=== PATIENT | male | born 1955 | race Caucasian/White ===

== ENCOUNTER 2017-12-13 17:38 | Observation (INO) | payer MEDICARE ==
[~2017-12-13 17:38] MED LIST: ISOVUE-370 76%-LOCM 1 ML ONE
[2017-12-13 18:17] LABS: #Eosinphils 0.5 thou/uL (0.0-0.7); #Monocytes 0.9 thou/uL (0.11-0.59); #Neutrophils 7.8 thou/uL (1.40-6.50); %Basophils 0.3 % (0.0-1.0); %Lymphocytes 24.2 % (21.0-51.0); %Monocytes 7.7 % (0.0-10.0); %Neutrophils 63.8 % (42.0-75.0); Hemoglobin 13.5 g/dL (14.0-18.0); Mean Corpuscular HGB CONC 32.8 g/dL (32.0-36.0); Mean Corpuscular Hemoglobin 29.5 pg (27.0-31.0); Mean Corpuscular Volume 89.9 fL (78.0-98.0); Mean Platelet Volume 9.4 fL (7.4-10.4); Platelet Count 180 thou/uL (130-400); RBC Distribution Width 13.7 % (11.5-14.5); Red Blood Cell (RBC) Count 4.57 mill/uL (4.70-6.10); White Blood Cell (WBC) Count 12.2 thou/uL (4.8-10.8)
[2017-12-13 18:27] LABS: ALT (SGPT) 9 U/L (8-55); AST (SGOT) 12 U/L (5-34); Albumin 4.4 g/dL (3.4-4.8); Alkaline Phosphatase 63 U/L (40-150); Anion Gap 15 mmol/L (10-20); BUN (Urea Nitrogen) 24 mg/dL (8.4-25.7); Bilirubin, Total 0.7 mg/dL (0.2-1.2); Calc. Creatinine Clearance 0 mL/min (70-130); Calcium 9.5 mg/dL (7.8-10.44); Carbon Dioxide 23 mmol/L (23-31); Chloride 106 mmol/L (98-107); Estimated GFR-MDRD 59; Globulin 3.1 g/dL (2.4-3.5); Glucose 115 mg/dL (80-115); Lipase 57 U/L (8-78); Potassium 3.6 mmol/L (3.5-5.1); Protein, Total 7.5 g/dL (5.8-8.1); Sodium 140 mmol/L (136-145)
--- NOTE | 2017-12-13 19:23 | CT ---
CT ABDOMEN AND PELVIS WITH IV CONTRAST 12/13/17 HISTORY: Abdominal pain. COMPARISON: 11/07/11. FINDINGS: Chronic interstitial scarring and large cystic lesion at the left lung base are stable. Gallbladder i s surgically absent. Cyst of the right kidney is noted. Urinary bladder is incompletely distended. Po stoperative changes of the right groin. Lack of oral contrast limits of evaluation of the bowel. Scattered diverticula. Circumferential wall thickening and adjacent fat stranding of the upper sigmoid colon. No free air or free fluid. IMPRESSION: Noncomplicated sigmoid diverticulitis. POS: NATALI
[2017-12-13] MEDS ORDERED: Morphine 2 MG/ML SYRINGE ONE (19:32)
--- NOTE | 2017-12-13 19:51 | PDOC.FPRHP ---
- History of Present Illness Chief Complaint: abdominal pain History of Present Illness: 62yo M with pmh of CHF s/p heart transplant in 2000 on immunosupresive meds presenting for abdominal pain. Onset 2 days ago, localized in LLQ with no radiation. constant dull pain worsening over time, rated 8-9/10. No related symptoms. No N/V, no diarrhea/constipation, no melena, no hematochezia, no fevers/chills. ED Course: Flagyl 500mg, Levaquin 750mg, morphine 4mg. Abd CT- sigmoid diverticulitis, uncomplicated - Allergies/Adverse Reactions Allergies Allergy/AdvReac Type Severity Reaction Status Date / Time No Known Drug Allergies Allergy Verified 12/13/17 21:04 - Home Medications Medication Instructions Recorded Confirmed Type Allopurinol 100 mg PO DAILY 09/15/12 12/13/17 History Amlodipine Besylate [amLODIPine 2.5 mg PO DAILY 09/15/12 12/13/17 History Besylate] Aspirin [Aspir 81] 81 mg PO DAILY 09/15/12 12/13/17 History Atenolol 100 mg PO BID 09/15/12 12/13/17 History Mycophenolate Mofetil 1,500 mg PO BID 09/15/12 12/13/17 History Ramipril 10 mg PO BID 09/15/12 12/13/17 History Simvastatin [Zocor] 20 mg PO HS 09/15/12 12/13/17 History cycloSPORINE, Modified [Neoral] 75 mg PO BID 09/15/12 12/13/17 History predniSONE [predniSONE 5 mg 5 mg PO DAILY 09/15/12 12/13/17 History Dosepak] Calcium Carbonate [Calcium] 600 mg PO TID 05/27/16 12/13/17 History Magnesium 250 mg PO DAILY 05/27/16 12/13/17 History Zinc Gluconate [Zinc] 15 mg PO BID 12/13/17 12/13/17 History - History PMHx: CHF (before transplant), stroke, HTN PSHx: Heart transplant 2000, cholecystectomy FHx: CAD and HTN- mother, father, siblings. lung cancer- father. stroke- mother Social: former smoker (1998 last use, 45 pack years), EtOH- denies, former social, drugs- denies - Review of Systems General: denies: fever/chills, fatigue Eyes: denies: eye pain, vision changes ENT: denies: nasal congestion, rhinorrhea Respiratory: denies: cough, congestion, shortness of breath Cardiovascular: denies: chest pain, palpitation Gastrointestinal: reports: abdominal pain. denies: nausea, vomiting, diarrhea, constipation, GI bleeding Genitourinary: denies: dysuria, discharge Skin: denies: rashes, lesions Musculoskeletal: denies: pain, tenderness Neurological: denies: syncope, seizure Psychological: denies: anxiety, depression - Vital signs BP: [159/104] HR: [78] RR: [16] Tmax: [97.9] Pox: [97]% on [ra] Wt: [95kg] - Physical Exam Constitutional: NAD, awake, alert and oriented HEENT: normocephalic and atraumatic, EOMI, conjunctiva clear, grossly normal vision, grossly normal hearing Neck: supple, trachea midline Chest: no-tender to palpation Heart: RRR, normal S1/S2, pulses present Lungs: CTAB, no respiratory distress, good air movement Abdomen: soft, bowel sounds present, other (mild tenderness to palpation of LLQ , no guarding, no rebound tenderness) Musculoskeletal: normal structure, normal tone Skin: no rash/lesions, good turgor Heme/Lymphatic: no purpura, no petechia Psychiatric: normal mood and affect, good judgment and insight FMR H&P: Results - Labs Result Diagrams: 12/13/17 17:46 12/13/17 17:46 Lab results: WBC 12.2 thou/uL (4.8-10.8) H 12/13/17 17:46 Hgb 13.5 g/dL (14.0-18.0) L 12/13/17 17:46 Hct 41.1 % (42.0-52.0) L 12/13/17 17:46 MCV 89.9 fL (78.0-98.0) 12/13/17 17:46 Plt Count 180 thou/uL (130-400) 12/13/17 17:46 Neutrophils % 63.8 % (42.0-75.0) 12/13/17 17:46 Sodium 140 mmol/L (136-145) 12/13/17 17:46 Potassium 3.6 mmol/L (3.5-5.1) 12/13/17 17:46 Chloride 106 mmol/L (98-107) 12/13/17 17:46 Carbon Dioxide 23 mmol/L (23-31) 12/13/17 17:46 BUN 24 mg/dL (8.4-25.7) 12/13/17 17:46 Creatinine 1.24 mg/dL (0.6-1.3) 12/13/17 17:46 Glucose 115 mg/dL (80-115) 12/13/17 17:46 Lactic Acid 1.1 mmol/L (0.5-2.2) 12/13/17 17:46 Calcium 9.5 mg/dL (7.8-10.44) 12/13/17 17:46 Total Bilirubin 0.7 mg/dL (0.2-1.2) 12/13/17 17:46 AST 12 U/L (5-34) 12/13/17 17:46 ALT 9 U/L (8-55) 12/13/17 17:46 Alkaline Phosphatase 63 U/L (40-150) 12/13/17 17:46 Serum Total Protein 7.5 g/dL (5.8-8.1) 12/13/17 17:46 Albumin 4.4 g/dL (3.4-4.8) 12/13/17 17:46 Lipase 57 U/L (8-78) 12/13/17 17:46 FMR H&P: A/P - Plan Uncomplicated acute sigmoid diverticulitis in the setting of immunosuppression A- LLQ pain and CT findings consistent with sigmoid diverticulitis. afebrile, WBC 12.2. Pt is immunosuppressed from heart transplant, s/p one dose of levaquin and flagyl P- continue flagyl -start rocephin tomorrow AM -LR 100ml/hr -clear liquid diet, advance as tolerated tomorrow CKD3a A-eGFR stable, BUN and Cr wnl P-IVF as stated above Hx of heart transplant -md aware, home meds HTN -home meds HLD -home meds FULL code PPx: Lovenox for VTE, no GI indicated FMR H&P: Upper Level - Pertinent history 62 yo CM with a PMH of CAD s/p heart transplant in 2000, HTN, HLD presenting with LLQ abdominal pain over the last 2 days. Pt has never experienced before. No obvious aggravating/alleviating factors. Pt still able to tolerate PO intake and notes no change in BMs. Pt denies fevers/chills, CP, SOB, NVD, blood in stools. Pt is compliant with medications including multiple anti-rejection meds. - Pertinent findings Vitals: BP 133/87, HR 73, RR 18, O2 97% on RA, tmax 98.6, wt 88kg Gen: obese in NAD CV: RRR, no MMR Resp: normal effort, CTAB Abd: obese, BS+, nondistended, moderately TTP LLQ, no guarding/rebound/fluid wave Skin: 1 cm SK on midback thoracic area, small area of erythema below - Plan Date/Time: 12/13/171950 I, Alexey Flynn MD, have evaluated this patient and agree with findings/plan as outlined by sports intern resident. Pertinent changes/additions are listed here. 1. Uncomplicated acute sigmoid diverticulitis in the setting of immunosuppression -Pt presents with acute LLQ pain and CT findings consistent with sigmoid diverticulitis. Pt is afebrile but has mild leukocytosis. Pt overall well appearing, but with history of immunosuppression, warrants inpatient medical therapy. -Will admit pt to medical floor with clear liquid diet, IV abx including Ceftriaxone and Metronidazole, and LR for mIVF. -Pain control with IV morphine PRN. -Blood culture obtained. 2. Hx of heart transplant -Continue home medication regimen 3. CKD3a -eGFR stable from previous values -IVF and continue to monitor 4. HTN -Continue home meds 5. HLD -Continue home meds FULL code PPx: Lovenox for VTE, no GI indicated disposition: Admit to medical floor for anticipated length of stay less than 2 midnights, pending clinical course. Attending Addendum - Attending Addendum Date/Time: 12/13/172103 I personally evaluated the patient and discussed the management with Dr. Patel /Gee. I agree with the History, Examination, Assessment and Plan documented above with any addition or exceptions noted below. Patient with history of cardiac transplant in 2000 presents with 2 day history of sudden onset of LLQ pain that is dull in nature. Not improved or worsened by anything. Denies fevers, chills, chest pain, shortness of breath, nausea, vomiting, diarrhea, change in bowel habits. Denies intolerance of food. On exam , has moderate TTP over the LLQ, no peritoneal signs. Mild elevation of WBC but no major left shift and no other major metabolic derangements. CT scan shows sigmoid diverticulitis and appears to show fairly significant diverticular burden on my review of the images. Patient will be admitted for Sigmoid diverticulitis in the setting of immunosuppression. Obtain cultures, continue abx therapy with Rocephin and Flagyl. Give mild bowel rest and PO fluid hydrate as tolerated. Symptomatically control as needed. Other chronic conditions stable at this time and will continue home meds. Monitor for signs of worsening due to his immunosuppression. At this time do not suspect any more serious etiology such as viral colitis in the setting of immunosuppression.
[2017-12-13 20:00] LABS: Bilirubin Negative (Negative); Blood, Urine Small (Negative); Clarity CLEAR (Clear); Glucose, Urine (Dipstick) Negative (Negative); Leukocyte Negative (Negative); Nitrite Negative (Negative); Protein, Urine (Dipstick) Negative (Neg-Trace); Specific Gravity, Urine 1.021 (1.002-1.036)
[2017-12-13 20:02] LABS: Bacteria/HPF None Seen HPF (None Seen); Hyaline Casts/LPF 0-3 HYALINE CAST LPF (0-3 Hyaline); RBC/HPF 0-3 HPF (0-3); Squamous Epithelial None Seen HPF (0-3); WBC/HPF None Seen HPF (0-3)
[2017-12-13] MEDS ORDERED: Acetaminophen 325 MG TAB PO PRN ×2 (21:06)
[2017-12-13] MEDS ORDERED: Ondansetron ODT 4 MG TAB SL PRN (21:06)
[2017-12-13] MEDS ORDERED: HYDROcodone/Acetaminophen 5/325 mg Tablet PO PRN ×2 (21:06)
[2017-12-13] MEDS ORDERED: Ondansetron PF 4 MG/2 ML Vial IVP PRN (21:06)
[2017-12-13] MEDS ORDERED: cycloSPORINE, Modified 25 MG CAP PO SCH (21:15)
[2017-12-13] MEDS ORDERED: Calcium Carbonate 600 MG TAB PO SCH (21:15)
[2017-12-13] MEDS ORDERED: metroNIDAZOLE 500 MG in Premix Bag 1 BAG IVPB ONE (21:21)
[2017-12-13] MEDS ORDERED: Mycophenolate 250 MG CAP PO SCH (21:30)
[2017-12-13] MEDS ORDERED: Atorvastatin Calcium 10 MG TAB PO SCH (21:30)
[2017-12-13] MEDS ORDERED: Ramipril 5 MG CAP PO SCH (21:30)
[2017-12-13] MEDS: Lactated Ringer's 1,000 ML IV SCH (23:04)
[2017-12-14] MEDS ORDERED: cefTRIAXone\\ROCEPHIN 2 GM VIAL IM SCH (04:00)
[2017-12-14] MEDS ORDERED: metroNIDAZOLE 500 MG TAB PO SCH ×2 (04:00→06:00)
[2017-12-14] MEDS: Atenolol 50 MG TAB PO SCH ×2 (04:23→08:15)
[2017-12-14] MEDS ORDERED: cefTRIAXone\\ROCEPHIN 2 GM in Sodium Chloride 0.9% 100 ML IVPB SCH (06:00)
[2017-12-14] MEDS ORDERED: cefTRIAXone\\ROCEPHIN 2 GM VIAL IVPB SCH (06:00)
[2017-12-14] MEDS ORDERED: metroNIDAZOLE 500 MG in Premix Bag 1 BAG IVPB SCH (06:00)
--- NOTE | 2017-12-14 06:29 | PDOC.FM ---
- Subjective Subjective: Mr Romero is feeling well this morning. Report feeling hungry. Has LLQ pain only with movement. Has not yet had a BM. Denies SOB. - Objective MAR Reviewed: Yes Vital Signs & Weight: Vital Signs (12 hours) Temp Pulse Resp BP BP Pulse Ox 12/14/17 05:12 66 18 126/76 96 12/14/17 04:23 71 12/13/17 23:00 97.9 F 71 18 115/68 91 L 12/13/17 21:02 97.9 F 74 18 150/77 H 95 Weight Weight 95.073 kg I&O: 12/12/17 12/13/17 12/14/17 06:59 06:59 06:59 Intake Total 200 Balance 200 Result Diagrams: 12/14/17 06:21 12/13/17 17:46 Radiology Reviewed by me: Yes (sigmoid diverticulosis) <Wendy Chisholm - Last Filed: 12/14/17 09:53> - Objective Vital Signs & Weight: Vital Signs (12 hours) Temp Pulse Resp BP BP Pulse Ox 12/14/17 08:15 61 117/77 12/14/17 08:13 117/77 12/14/17 07:34 98.3 F 61 20 117/77 98 12/14/17 05:12 66 18 126/76 96 12/14/17 04:23 71 12/13/17 23:00 97.9 F 71 18 115/68 91 L Weight Weight 95.073 kg I&O: 12/13/17 12/14/17 12/15/17 06:59 06:59 06:59 Intake Total 200 Balance 200 Result Diagrams: 12/14/17 06:21 12/13/17 17:46 <Georges Villavicencio - Last Filed: 12/14/17 10:07> Phys Exam - Physical Examination Constitutional: NAD Neck: supple Respiratory: no wheezing, clear to auscultation bilateral Cardiovascular: RRR, no significant murmur Gastrointestinal: soft, positive bowel sounds tender in LLQ Musculoskeletal: pulses present Neurological: moves all 4 limbs Psychiatric: normal affect, A&O x 3 Skin: cap refill <2 seconds <Wendy Chisholm - Last Filed: 12/14/17 09:53> Dx/Plan (1) Diverticulosis Code(s): K57.90 - DVRTCLOS OF INTEST, PART UNSP, W/O PERF OR ABSCESS W/O BLEED Status: Acute (2) CKD (chronic kidney disease) stage 3, GFR 30-59 ml/min Code(s): N18.3 - CHRONIC KIDNEY DISEASE, STAGE 3 (MODERATE) Status: Chronic (3) HLD (hyperlipidemia) Code(s): E78.5 - HYPERLIPIDEMIA, UNSPECIFIED Status: Chronic (4) HTN (hypertension) Code(s): I10 - ESSENTIAL (PRIMARY) HYPERTENSION Status: Chronic (5) Hx of heart transplant Code(s): Z94.1 - HEART TRANSPLANT STATUS Status: Chronic - Plan Plan: Uncomplicated acute sigmoid diverticulitis in the setting of immunosuppression - Pt immunosupressed with mild leukocytosis - CT 12/13: sigmoid diverticulitis - Blood cx pending - Transition from IV Ceftriaxone & Flagyl to PO Augmentin & Flagyl - Continue LR @ 100 - Transition from IV Morphine PRN for pain control to Tylenol, ibuprofen - Will escalate diet to HH CKD3a - GFR stable Hx of heart transplant - Continue home meds HTN - Continue home meds HLD - Continue home meds Code Status: FULL DVT ppx: Lovenox Dispo: likely today if tolerating PO diet <Wendy Chisholm - Last Filed: 12/14/17 09:53> Attending Addendum - Attending Addendum Date/Time: 12/14/17 1006 I personally evaluated the patient and discussed the management with Dr. Chisholm. I agree with the History, Examination, Assessment and Plan documented above with any addition or exceptions noted below. Patient feels well this morning, and LLQ pain is improved, only bothers him with movement. Will advance diet and change to PO abx as he has no systemic signs of infection and pain is not worsened with PO intake. No changes in BMs. Will need good return precautions but if feeling well this afternoon and tolerating PO well can likely d/c home on oral therapy. <Georges Villavicencio - Last Filed: 12/14/17 10:07>
[2017-12-14 06:37] LABS: #Eosinphils 0.5 thou/uL (0.0-0.7); #Lymphocytes 2.4 thou/uL (1.20-3.40); #Monocytes 0.7 thou/uL (0.11-0.59); %Eosinophils 5.6 % (0.0-10.0); %Lymphocytes 27.5 % (21.0-51.0); %Monocytes 8.6 % (0.0-10.0); %Neutrophils 58.3 % (42.0-75.0); Hemoglobin 11.5 g/dL (14.0-18.0); Mean Corpuscular Hemoglobin 28.9 pg (27.0-31.0); Mean Corpuscular Volume 90.3 fL (78.0-98.0); Mean Platelet Volume 9.2 fL (7.4-10.4); Platelet Count 164 thou/uL (130-400); RBC Distribution Width 13.8 % (11.5-14.5); Red Blood Cell (RBC) Count 3.99 mill/uL (4.70-6.10); White Blood Cell (WBC) Count 8.6 thou/uL (4.8-10.8)
[2017-12-14 07:45] VITALS: TEMP 98.3
[2017-12-14] MEDS ORDERED: predniSONE 5 MG TAB PO SCH (08:00)
[2017-12-14] MEDS: Lactated Ringer's 1,000 ML IV SCH (08:22)
[2017-12-14] MEDS ORDERED: Mycophenolate 250 MG CAP PO SCH (09:00)
[2017-12-14] MEDS ORDERED: Magnesium Oxide 250 MG TAB PO SCH (09:00)
[2017-12-14] MEDS ORDERED: Amlodipine 5 MG TAB PO SCH (09:00)
[2017-12-14] MEDS ORDERED: cycloSPORINE, Modified 25 MG CAP PO SCH (09:00)
[2017-12-14] MEDS ORDERED: Aspirin 81 mg Enteric Coated Tablet PO SCH (09:00)
[2017-12-14] MEDS ORDERED: Ramipril 5 MG CAP PO SCH (09:00)
[2017-12-14] MEDS ORDERED: Allopurinol 100 MG TAB PO SCH (09:00)
[2017-12-14] MEDS ORDERED: ZINC GLUCONATE PO SCH (09:00)
[2017-12-14] MEDS ORDERED: Enoxaparin Sodium 40 MG/0.4 ML SYRINGE SC SCH (09:00)
[2017-12-14] MEDS ORDERED: Calcium Carbonate 600 MG TAB PO SCH (09:00)
[2017-12-14 11:52] VITALS: BP 121/75
[2017-12-14] MEDS ORDERED: Atorvastatin Calcium 10 MG TAB PO SCH (21:00)
--- NOTE | 2017-12-15 04:14 | DIS-2 ---
DATE OF ADMISSION: 12/13/2017 DATE OF DISCHARGE: 12/14/2017 RESIDENT: Wendy Chisholm MD, PGY1. ADMITTING ATTENDING: Georges Villavicencio MD DISCHARGE ATTENDING: Georges Villavicencio MD CONSULTATIONS: None. PROCEDURES: CT scan of abdomen and pelvis showing noncomplicated sigmoid diverticulitis. PRIMARY DIAGNOSES: 1. Acute sigmoid diverticulitis. 2. Immunosuppression. SECONDARY DIAGNOSES: 1. Chronic kidney disease 3A. 2. History of heart transplant. 3. Hypertension. 4. Hyperlipidemia. DISCHARGE MEDICATIONS: 1. Aspirin 81 mg daily. 2. Mycophenolate 1500 mg b.i.d. 3. Allopurinol 100 mg daily. 4. Atenolol 100 mg b.i.d. 5. Ramipril 10 mg b.i.d. 6. Amlodipine 2.5 mg daily. 7. Simvastatin 20 mg at bedtime. 8. Prednisone 5 mg daily. 9. Calcium carbonate 600 mg t.i.d. 10. Magnesium 250 mg daily. 11. Zinc gluconate 50 mg b.i.d. 12. Augmentin 875/125 q.i.d. for 10 days (new). 13. Flagyl 500 mg q.i.d. for 10 days (new). 14. Cyclosporine 75 mg b.i.d. DISCONTINUED MEDICATIONS: None. HISTORY OF PRESENT ILLNESS AND HOSPITAL COURSE: Mr. Romero is a 62-year-old male who presented with left lower quadrant pain, found to have uncomplicated acute sigmoid diverticulitis. In the setting of immunosuppression for history of heart transplant and leukocytosis. The patient was admitted and started on IV ceftriaxone and Flagyl. He was started on LR at 100 and blood cultures are still pendi ng. His pain was controlled with Tylenol and he was transitioned to p.o. Augmentin and Flagyl prior to discharge. He was tolerating oral diet at time of discharge. Chronic conditions of CKD, hypertension, and hyperlipidemia were stable with the patient's home medic ations. The patient was continued on their immunosuppressive medications for history of heart transp lant. DISPOSITION: Stable. DISCHARGE INSTRUCTIONS: 1. Location: Home. 2. Diet: Heart healthy. 3. Activity: No restrictions. 4. Follow up with PCP in 2-[address] Waite in 2 weeks[facility].
== END 2017-12-14 13:31 | disposition home or self-care (01) ==
LOC: ERS 17:38 → 2SW 19:49
PROVIDERS: ADMIT Student in an Organized Health Care Education/Training Program; ATTEND Student in an Organized Health Care Education/Training Program
DX: K57.32 Diverticulitis of large intestine without perforation or abscess without bleeding (principal); I12.9 Hypertensive chronic kidney disease with stage 1 through stage 4 chronic kidney disease, or unspecified chronic kidney disease; N18.3 Chronic kidney disease, stage 3 (moderate); E78.5 Hyperlipidemia, unspecified; Z79.82 Long term (current) use of aspirin; Z79.899 Other long term (current) drug therapy; Z94.1 Heart transplant status
CPT/HCPCS: 74177; 80053; 83605; 83690; 85025 ×2; 87040; 96361 ×3; 96365; 96366 ×2; 96367; 96372; 96375; 97139; 99285; G0378 ×2; 36415; 81003; 81015; J0696; J1650; J1956; J2270; J7050; J7515; J7517

== ENCOUNTER 2018-05-12 22:51 | Inpatient (IN) | payer MEDICARE ==
[2018-05-12 23:28] LABS: #Basophils 0.1 thou/uL (0.0-0.2); #Eosinphils 0.4 thou/uL (0.0-0.7); #Lymphocytes 2.8 thou/uL (1.20-3.40); #Monocytes 1.4 thou/uL (0.11-0.59); #Neutrophils 11.9 thou/uL (1.40-6.50); %Basophils 0.4 % (0.0-1.0); %Eosinophils 2.3 % (0.0-10.0); %Lymphocytes 17.2 % (21.0-51.0); %Monocytes 8.5 % (0.0-10.0); %Neutrophils 71.6 % (42.0-75.0); Hemoglobin 12.7 g/dL (14.0-18.0); Mean Corpuscular HGB CONC 32.8 g/dL (32.0-36.0); Mean Corpuscular Hemoglobin 29.6 pg (27.0-31.0); Mean Corpuscular Volume 90.2 fL (78.0-98.0); Mean Platelet Volume 8.6 fL (7.4-10.4); Platelet Count 174 thou/uL (130-400); RBC Distribution Width 13.7 % (11.5-14.5); Red Blood Cell (RBC) Count 4.29 mill/uL (4.70-6.10); White Blood Cell (WBC) Count 16.6 thou/uL (4.8-10.8)
[2018-05-12 23:51] LABS: ALT (SGPT) 13 U/L (8-55); AST (SGOT) 12 U/L (5-34); Albumin 4.2 g/dL (3.4-4.8); Alkaline Phosphatase 72 U/L (40-150); Anion Gap 13 mmol/L (10-20); BUN (Urea Nitrogen) 22 mg/dL (8.4-25.7); Bilirubin, Total 0.9 mg/dL (0.2-1.2); Calc. Creatinine Clearance 0 mL/min (70-130); Carbon Dioxide 31 mmol/L (23-31); Chloride 102 mmol/L (98-107); Estimated GFR-MDRD 61; Globulin 2.6 g/dL (2.4-3.5); Glucose 112 mg/dL (80-115); Lipase 42 U/L (8-78); Potassium 3.8 mmol/L (3.5-5.1); Protein, Total 6.8 g/dL (5.8-8.1); Sodium 142 mmol/L (136-145)
[2018-05-13 01:15] LABS: Bilirubin Negative (Negative); Blood, Urine Trace (Negative); Clarity CLEAR (Clear); Glucose, Urine (Dipstick) Negative (Negative); Leukocyte Negative (Negative); Nitrite Negative (Negative); Protein, Urine (Dipstick) Negative (Neg-Trace); Urobilinogen 0.2 mg/dL (0.2-1.0); pH, Urine 5.5 (5.0-9.0)
[2018-05-13 01:17] LABS: Bacteria/HPF None Seen HPF (None Seen); Hyaline Casts/LPF 0-3 HYALINE CAST LPF (0-3 Hyaline); Pathc Cast-AUWi Flag 0.13 (0-2.49); RBC/HPF 0-3 HPF (0-3); Squamous Epithelial None Seen HPF (0-3); WBC/HPF 0-3 HPF (0-3)
--- NOTE | 2018-05-13 01:36 | PDOC.FPRHP ---
- History of Present Illness Chief Complaint: RLQ abdominal pain History of Present Illness: 62yo M with pmh of CHF s/p heart transplant in 2000 on immunosupresive meds presenting for abdominal pain. Onset 4 days ago, localized in LLQ with no radiation. constant dull pain worsening over time, moderate in severity. Nausea , no vomiting, no diarrhea/constipation, no melena, no hematochezia, no fevers/ chills. ED Course: Flagyl 500mg, cipro 400mg, Abd CT- sigmoid diverticulitis - Allergies/Adverse Reactions Allergies Allergy/AdvReac Type Severity Reaction Status Date / Time No Known Drug Allergies Allergy Verified 05/13/18 04:19 - Home Medications Medication Instructions Recorded Confirmed Type Allopurinol 100 mg PO DAILY 09/15/12 05/13/18 History Amlodipine Besylate [amLODIPine 2.5 mg PO DAILY 09/15/12 05/13/18 History Besylate] Aspirin [Aspir 81] 81 mg PO DAILY 09/15/12 05/13/18 History Atenolol 100 mg PO BID 09/15/12 05/13/18 History Mycophenolate Mofetil 1,500 mg PO BID 09/15/12 05/13/18 History Ramipril 10 mg PO BID 09/15/12 05/13/18 History Simvastatin [Zocor] 20 mg PO HS 09/15/12 05/13/18 History cycloSPORINE, Modified [Neoral] 75 mg PO BID 09/15/12 05/13/18 History predniSONE [predniSONE 5 mg 5 mg PO DAILY 09/15/12 05/13/18 History Dosepak] Magnesium 250 mg PO DAILY 05/27/16 05/13/18 History Zinc Gluconate [Zinc] 15 mg PO BID 12/13/17 05/13/18 History - History PMHx: CHF (before transplant), stroke, HTN, Gout, basal cell carcinoma s/p biopsy in R ear PSHx: Heart transplant 2000, cholecystectomy FHx: CAD and HTN- mother, father, siblings. lung cancer- father. stroke- mother Social: former smoker (1998 last use, 45 pack years), EtOH- denies, former social, drugs- denies - Review of Systems General: denies: fever/chills, fatigue Eyes: denies: eye pain, vision changes ENT: denies: nasal congestion, rhinorrhea Respiratory: denies: congestion, shortness of breath Cardiovascular: denies: chest pain, palpitation Gastrointestinal: reports: nausea. denies: vomiting Genitourinary: denies: incontinence, dysuria Skin: denies: rashes, lesions Musculoskeletal: denies: pain, tenderness Neurological: denies: numbness, syncope Psychological: denies: anxiety, depression - Vital signs BP: [134/74] HR: [77] RR: [18] Tmax: [97.9] Pox: [94]% on [ra] Wt: [94kg] - Physical Exam Constitutional: NAD, awake, alert and oriented HEENT: normocephalic and atraumatic, EOMI, grossly normal vision, grossly normal hearing Neck: supple, FROM Chest: no-tender to palpation Heart: RRR, normal S1/S2 Lungs: CTAB, no respiratory distress Abdomen: soft, bowel sounds present, other (mild-moderate TTP LLQ) Musculoskeletal: normal structure, normal tone Neurological: no focal deficit, normal sensation Skin: no rash/lesions, good turgor Heme/Lymphatic: no unusual bruising or bleeding, no purpura Psychiatric: normal mood and affect, good judgment and insight FMR H&P: Results - Labs Result Diagrams: 05/12/18 23:19 05/12/18 23:19 Lab results: WBC 16.6 thou/uL (4.8-10.8) H 05/12/18 23:19 Hgb 12.7 g/dL (14.0-18.0) L 05/12/18 23:19 Hct 38.7 % (42.0-52.0) L 05/12/18 23:19 MCV 90.2 fL (78.0-98.0) 05/12/18 23:19 Plt Count 174 thou/uL (130-400) 05/12/18 23: Neutrophils % 71.6 % (42.0-75.0) 05/12/18 23:19 Sodium 142 mmol/L (136-145) 05/12/18 23:19 Potassium 3.8 mmol/L (3.5-5.1) 05/12/18 23:19 Chloride 102 mmol/L (98-107) 05/12/18 23:19 Carbon Dioxide 31 mmol/L (23-31) 05/12/18 23:19 BUN 22 mg/dL (8.4-25.7) 05/12/18 23:19 Creatinine 1.20 mg/dL (0.7-1.3) 05/12/18 23: Glucose 112 mg/dL (80-115) 05/12/18 23:19 Calcium 11.0 mg/dL (7.8-10.44) H 05/12/18 23:19 Total Bilirubin 0.9 mg/dL (0.2-1.2) 05/12/18 23: AST 12 U/L (5-34) 05/12/18 23: ALT 13 U/L (8-55) 05/12/18 23: Alkaline Phosphatase 72 U/L (40-150) 05/12/18 23: Serum Total Protein 6.8 g/dL (5.8-8.1) 05/12/18 23: Albumin 4.2 g/dL (3.4-4.8) 05/12/18: Lipase 42 U/L (8-78) 05/12/18 23:19 Urine Ketones Negative mg/dL (Negative) 05/13/18 01:00 Urine Blood Trace (Negative) H 05/13/18 01:00 Urine Nitrite Negative (Negative) 05/13/18 01:00 Ur Leukocyte Esterase Negative (Negative) 05/13/18 01:00 Urine RBC 0-3 HPF (0-3) 05/13/18 01:00 Urine WBC 0-3 HPF (0-3) 05/13/18 01:00 Ur Squamous Epith Cells None Seen HPF (0-3) 05/13/18 01:00 Urine Bacteria None Seen HPF (None Seen) 05/13/18 01:00 FMR H&P: A/P - Problem List (1) Diverticulitis Current Visit: Yes Status: Acute Code(s): K57.92 - DVTRCLI OF INTEST, PART UNSP, W/O PERF OR ABSCESS W/O BLEED (2) Gout Current Visit: Yes Status: Acute Code(s): M10.9 - GOUT, UNSPECIFIED (3) CKD (chronic kidney disease) stage 3, GFR 30-59 ml/min Current Visit: No Status: Chronic Code(s): N18.3 - CHRONIC KIDNEY DISEASE, STAGE 3 (MODERATE) (4) HLD (hyperlipidemia) Current Visit: No Status: Chronic Code(s): E78.5 - HYPERLIPIDEMIA, UNSPECIFIED (5) HTN (hypertension) Current Visit: No Status: Chronic Code(s): I10 - ESSENTIAL (PRIMARY) HYPERTENSION (6) Hx of heart transplant Current Visit: No Status: Chronic Code(s): Z94.1 - HEART TRANSPLANT STATUS - Plan Uncomplicated acute sigmoid diverticulitis in the setting of immunosuppression A- LLQ pain and CT findings consistent with sigmoid diverticulitis. afebrile, WBC 16.6 though pt on home prednisone. Pt is immunosuppressed from heart transplant, s/p one dose of cipro and flagyl. Pt is high risk 2/2 immunosupression P- start zosyn 4.5mg q6hr -clear liquid diet, advance as tolerated tomorrow CKD3a A-eGFR stable, BUN and Cr wnl P-IVF as stated above Hx of heart transplant -md aware, home meds HTN -home meds HLD -home meds Gout -home meds BPH -pt does not know home meds, start when brought up Basal cell carcinoma R ear -s/p biopsy, MD aware FULL code PPx: Lovenox for VTE, no GI indicated FMR H&P: Upper Level - Pertinent history Mr. Romero is a 63 year old immunocompromised male who presents with 4-5 day history of left lower quadrant abdominal pain. Pt had some nausea this morning, but nothing currently. Pt was hospitalized in 11/2017 for sigmoid diverticulitis. Colonoscopy in 2017 showed diffuse diverticulosis and 3 polyps were removed (tubular adenoma and hyperplastic polyps) - Pertinent findings Vitals: BP: 134/114 Resp: 18 O2 sat: 94 on Room Air P: 77 T: 97.9 Exam: General: pt alert/oriented Abdomen: normoactive bowel sounds; soft; TTP in LLQ; no rebound or involuntary guarding. Labs: as above. - Plan Date/Time: 05/13/18 0136 I, Bryanna Lynch, have evaluated this patient and agree with findings/plan as outlined by management retail intern resident. Pertinent changes/additions are listed here. 1. Acute uncomplicated diverticulitis. - will admit to medical unit for observation. - Will begin treatment with IV antibiotics given pt's high risk status/ immunocompromised state, although I suspect he will be able to be quickly transitioned to PO antibiotics. - IV fluid hydration. Regarding chronic medical problems, home medications will be restarted. Addendum - Attending - Attending Attestation Date/Time: 05/13/18 6230 I personally evaluated the patient and discussed the management with Dr. Patel /Syed. I agree with the History, Examination, Assessment and Plan documented above with any addition or exceptions noted below. Patient here with history of immunosuppression and with pain symptoms consistent with last episode of diverticulitis. He has pain with eating that has been going on about 4 days. Presents with leukocytosis. His CT apparently shows uncomplicated diverticulitis but will await official read. Continue Zosyn due to higher risk of MDR organisms given his immunosuppression. Continue to monitor symptoms and keep on more tolerable diet today. Anticipate 2-3 days hospitalization.
[2018-05-13] MEDS ORDERED: metroNIDAZOLE 500 MG/100 ML BAG ONE (01:49)
[2018-05-13] MEDS ORDERED: Sodium Chloride 0.9% 1,000 ML IV SCH (03:36)
[2018-05-13] MEDS ORDERED: Ondansetron PF 4 MG/2 ML Vial IVP PRN ×2 (03:36→03:45)
[2018-05-13] MEDS ORDERED: Ondansetron ODT 4 MG TAB SL PRN (03:36)
[2018-05-13] MEDS ORDERED: Ondansetron ODT 4 MG TAB PO PRN (03:45)
[2018-05-13] MEDS ORDERED: Acetaminophen 325 MG TAB PO PRN (03:45)
[2018-05-13] MEDS ORDERED: Piperacillin/Tazobactam 4.5 GM in Sodium Chloride 0.9% 100 ML IVPB SCH (04:00)
[2018-05-13 04:21] VITALS: BMI 30.7
[2018-05-13] MEDS: Piperacillin/Tazobactam 4.5 GM in Sodium Chloride 0.9% 100 ML IVPB SCH ×3 (05:20→17:18)
--- NOTE | 2018-05-13 07:10 | PDOC.EVN ---
Event Note - Event Note Event Note: S patient states abd pain is somewhat better, denies N/V/D. Pain localizes to LLQ this AM. states he is tolerating water without difficulty. States started feeling adb pain about 4-5 days ago. O afebrile overnight, no distress abd: non-distended, mild tenderness to palpation, no rebound/guarding A/P # High-risk diverticulitis, immunocomprised patient - cont zosyn, de-escalate once abd pain, leukocytosis improving - s/p cipro, flaggyl in ED - advanced to full liquid today - awaiting official CT read # Hx of heart transplant # Basal cell carcinoma R ear s/p cellulitus - patient states he was on abx for infection affecting biopsy, does not remember which - family will bring later - monitor for diarrhea # CKD3a eGFR stable, BUN and Cr wnl maintenance IVF # HTN -home meds # HLD -home meds # Gout -home meds # BPH FULL code PPx: Lovenox for VTE Dispo: anticipate 1-2 days IV abx pending clinical course
--- NOTE | 2018-05-13 07:48 | CT ---
ABDOMEN AND PELVIC CT WITH COTNRAST: COMPARISON: 12/13/2017. CLINICAL INDICATION: Abdominal pain. FINDINGS: Stable cystic lesion of the left lung base is present. Subpleural opacities of each hemithorax are r edemonstrated. There is a slight nodularity of the hepatic contour which may relate to cirrhotic mor phology. Evidence of prior cholecystectomy. Stable hypodensity of the anterior right mid kidney is present and there are additional multiple bilateral renal parenchymal hypodensities which are too sma ll to definitively characterize. There is prominence of the wall of the sigmoid colon with multiple colonic diverticula as well as pericolonic edema compatible with acute sigmoid diverticulitis. No dr ainable abscess is present. No disseminated free air. There is a small hiatal hernia. Scattered va scular disease is present. No acute osseous abnormalities. IMPRESSION: 1. Acute sigmoid diverticulitis. 2. Findings suggest cirrhotic morphology of the liver. Correlate clinically as well as recommend co ntinued clinical followup in this regard. 3. Right renal cyst, and additional multiple renal hypodensities that are too small to further mamta cterize. 4. Redemonstration of cystic lesion of the left lung base. POS: JEREMIAH
[2018-05-13] MEDS: Allopurinol 100 MG TAB PO SCH (08:31)
[2018-05-13] MEDS: cycloSPORINE, Modified 25 MG CAP PO SCH ×2 (08:32→19:58)
[2018-05-13] MEDS: Ramipril 5 MG CAP PO SCH ×2 (08:32→19:59)
[2018-05-13] MEDS: Magnesium Oxide 250 MG TAB PO SCH (08:32)
[2018-05-13] MEDS: Aspirin 81 mg Enteric Coated Tablet PO SCH (08:33)
[2018-05-13] MEDS: Amlodipine 5 MG TAB PO SCH (08:33)
[2018-05-13] MEDS: predniSONE 5 MG TAB PO SCH (08:33)
[2018-05-13] MEDS: Calcium Carbonate 600 MG TAB PO SCH ×3 (08:33→19:58)
[2018-05-13] MEDS: Enoxaparin Sodium 40 MG/0.4 ML SYRINGE SC SCH (08:34)
[2018-05-13] MEDS: Atenolol 50 MG TAB PO SCH ×2 (08:34→19:59)
[2018-05-13] MEDS ORDERED: ZINC GLUCONATE PO SCH (09:00)
[2018-05-13] MEDS ORDERED: metroNIDAZOLE 500 MG in Premix Bag 1 BAG IVPB SCH (10:00)
[2018-05-13] MEDS: Mycophenolate 250 MG CAP PO SCH ×2 (12:13→19:58)
[2018-05-13] MEDS ORDERED: Atorvastatin Calcium 10 MG TAB PO SCH (21:00)
[2018-05-14] MEDS: Piperacillin/Tazobactam 4.5 GM in Sodium Chloride 0.9% 100 ML IVPB SCH ×3 (00:41→12:26)
[2018-05-14 06:16] LABS: #Basophils 0.1 thou/uL (0.0-0.2); #Eosinphils 0.8 thou/uL (0.0-0.7); #Lymphocytes 2.9 thou/uL (1.20-3.40); #Monocytes 0.8 thou/uL (0.11-0.59); #Neutrophils 6.2 thou/uL (1.40-6.50); %Basophils 0.7 % (0.0-1.0); %Eosinophils 7.4 % (0.0-10.0); %Lymphocytes 26.7 % (21.0-51.0); %Monocytes 7.1 % (0.0-10.0); %Neutrophils 58.1 % (42.0-75.0); Hemoglobin 12.1 g/dL (14.0-18.0); Mean Corpuscular HGB CONC 32.8 g/dL (32.0-36.0); Mean Corpuscular Hemoglobin 30.2 pg (27.0-31.0); Mean Corpuscular Volume 92.1 fL (78.0-98.0); Mean Platelet Volume 9.8 fL (7.4-10.4); Platelet Count 152 thou/uL (130-400); RBC Distribution Width 13.9 % (11.5-14.5); White Blood Cell (WBC) Count 10.7 thou/uL (4.8-10.8)
[2018-05-14 06:22] LABS: INR-International Normal Ratio 1.1; Prothrombin Time 14.2 SEC (12.0-14.7)
--- NOTE | 2018-05-14 06:39 | PDOC.FM ---
- Subjective Subjective: This morning patient states he is feeling well. Denies fevers, chills, sweats, overnight. He states his abdominal pain is almost totally resolved, occassionally he gets a mild ache. Tolerating full liquid diet yesterday without any diarrhea or increased pain. Will advance to regular diet today. No N /V. - Objective Vital Signs & Weight: Vital Signs (12 hours) Temp Pulse Resp BP BP Pulse Ox 05/14/18 04:00 97.3 F L 63 18 135/86 95 05/13/18 20:00 97.3 F L 66 18 126/80 95 05/13/18 19:59 66 126/80 Weight Weight 97.069 kg I&O: 05/12/18 05/13/18 05/14/18 06:59 06:59 06:59 Intake Total 900 1720 Balance 900 1720 Result Diagrams: 05/14/18 05:57 05/14/18 05:57 Phys Exam - Physical Examination Constitutional: NAD HEENT: moist MMs, sclera anicteric Respiratory: no wheezing, clear to auscultation bilateral Cardiovascular: RRR, no significant murmur, no rub Gastrointestinal: soft, non-tender, no distention, positive bowel sounds reducible umbilical hernia Musculoskeletal: no edema, pulses present Neurological: non-focal, moves all 4 limbs Psychiatric: normal affect, A&O x 3 Skin: no rash, cap refill <2 seconds Dx/Plan (1) Diverticulitis Code(s): K57.92 - DVTRCLI OF INTEST, PART UNSP, W/O PERF OR ABSCESS W/O BLEED Status: Acute (2) HLD (hyperlipidemia) Code(s): E78.5 - HYPERLIPIDEMIA, UNSPECIFIED Status: Chronic (3) HTN (hypertension) Code(s): I10 - ESSENTIAL (PRIMARY) HYPERTENSION Status: Chronic (4) Hx of heart transplant Code(s): Z94.1 - HEART TRANSPLANT STATUS Status: Chronic - Plan Plan: # High-risk diverticulitis, immunocomprised patient - cont zosyn - s/p cipro, flaggyl in ED - advance to regular diet today # Hx of heart transplant # Basal cell carcinoma R ear s/p cellulitus - patient states he was on abx for infection affecting biopsy, does not remember which - monitor for diarrhea # CKD3a eGFR stable, BUN and Cr wnl maintenance IVF # HTN -home meds # HLD -home meds # Gout -home meds # BPH FULL code PPx: Lovenox for VTE Dispo: anticipate d/c this PM if patient tolerates regular diet well Addendum - Attending - Attending Attestation Date/Time: 05/14/18 0810 I personally evaluated the patient and discussed the management with Dr. Carpenter. I agree with the History, Examination, Assessment and Plan documented above with any addition or exceptions noted below. Patient doing well this morning, less pain and labs normalizing. Will advance diet and see how he tolerates. Consider PM discharge if doing well on PO abx, but might need 1 more day pending clinical course.
[2018-05-14 06:43] LABS: ALT (SGPT) 10 U/L (8-55); AST (SGOT) 10 U/L (5-34); Albumin 3.6 g/dL (3.4-4.8); Alkaline Phosphatase 59 U/L (40-150); Anion Gap 11 mmol/L (10-20); BUN (Urea Nitrogen) 15 mg/dL (8.4-25.7); Bilirubin, Total 0.7 mg/dL (0.2-1.2); Calc. Creatinine Clearance 96 mL/min (70-130); Calcium 10.1 mg/dL (7.8-10.44); Carbon Dioxide 32 mmol/L (23-31); Chloride 103 mmol/L (98-107); Estimated GFR-MDRD 69; Globulin 2.7 g/dL (2.4-3.5); Glucose 93 mg/dL (80-115); Potassium 3.7 mmol/L (3.5-5.1); Protein, Total 6.3 g/dL (5.8-8.1); Sodium 142 mmol/L (136-145)
[2018-05-14] MEDS: Magnesium Oxide 250 MG TAB PO SCH (08:30)
[2018-05-14] MEDS: Allopurinol 100 MG TAB PO SCH (08:30)
[2018-05-14] MEDS: Aspirin 81 mg Enteric Coated Tablet PO SCH (08:30)
[2018-05-14] MEDS: Calcium Carbonate 600 MG TAB PO SCH ×2 (08:30→14:58)
[2018-05-14] MEDS: Amlodipine 5 MG TAB PO SCH (08:30)
[2018-05-14] MEDS: Ramipril 5 MG CAP PO SCH (08:32)
[2018-05-14] MEDS: cycloSPORINE, Modified 25 MG CAP PO SCH (08:32)
[2018-05-14] MEDS: predniSONE 5 MG TAB PO SCH (08:32)
[2018-05-14] MEDS: Atenolol 50 MG TAB PO SCH (08:32)
[2018-05-14] MEDS: Enoxaparin Sodium 40 MG/0.4 ML SYRINGE SC SCH (08:33)
[2018-05-14] MEDS: Mycophenolate 250 MG CAP PO SCH (12:25)
[2018-05-14 15:46] VITALS: BP 131/84; TEMP 97.7
--- NOTE | 2018-05-15 05:54 | DIS ---
DATE OF ADMISSION: 05/13/2018 DATE OF DISCHARGE: 05/14/2018 RESIDENT: Dr. Julian Carpenter. CONSULTS: None. PROCEDURES: CT scan of abdomen and pelvis showed acute sigmoid diverticulitis, suggested cirrhotic morphology of the liver, renal cyst, cystic lesion at left lung base. PRIMARY DIAGNOSIS: Acute diverticulitis, high-risk secondary to immunosuppression. SECONDARY DIAGNOSES: 1. History of heart transplant. 2. Basal cell carcinoma status post right ear cellulitis. 3. Chronic kidney disease stage 3. 4. Hypertension. 5. Hyperlipidemia. 6. Gout. 7. Benign prostatic hyperplasia. DISCHARGE MEDICATIONS: 1. Aspirin. 2. Prednisone. 3. Ramipril. 4. Mycophenolate mofetil. 5. Magnesium. 6. Atenolol. 7. Amlodipine. 8. Allopurinol. 9. Cyclosporine. 10. Simvastatin. New medications; 1. Metamucil 1 packet daily for 30 days. 2. Augmentin 875/125 b.i.d. for 7 days. 3. Probiotic 7 days one tablet. Discontinued medications: None. HISTORY OF PRESENT ILLNESS/HOSPITAL COURSE: This is a 63-year-old gentleman with past medical history significant for heart transplant, status post CHF on immunosuppressive medications, presenting for abdominal pain. Pain started about 4 days ago. It located in the lower left quadrant. No radiation. Constant dull pain. The patient denied nausea, vomiting, diarrhea, melena, or hematochezia at the time of admission. He received Flagyl and Cipro in the ER. White count was found to be 16.6. Colonoscopy in 2016 showed diffuse diverticulosis. The patient had an admission for diverticulitis of the sigmoid in 11/2017. The patient was treated with Zosyn while inpatient. White count trended down to 10.6. The patient tolerated a full liquid diet on the first day of hospitalization and a regular diet throughout the second day of the hospitalization. The patient stated that his abdominal pain was totally resolved by the second day of the hospitalization. The patient was sent home on Augmentin for 7 days for coverage of diverticulitis. DISPOSITION: Stable. DISCHARGE INSTRUCTIONS: LOCATION: Home. DIET: Regular. ACTIVITY: As tolerated. FOLLOWUP: Follow up with Dr. Christensen. Monitor for development of C diff secondary to antibiotic exposure and renal suppressed patient. Dr. Lynch for evaluation of umbilical hernia reducible at the patient's request. Job ID: [id number]
== END 2018-05-14 16:22 | disposition home or self-care (01) | DRG 392 ==
LOC: ERS 22:51 → T4-A 05-13 03:31 → OBSVTOIN 05-13 08:37
PROVIDERS: ADMIT Student in an Organized Health Care Education/Training Program; ATTEND Student in an Organized Health Care Education/Training Program
DX: K57.32 Diverticulitis of large intestine without perforation or abscess without bleeding (principal); Z94.1 Heart transplant status; M10.9 Gout, unspecified; I12.9 Hypertensive chronic kidney disease with stage 1 through stage 4 chronic kidney disease, or unspecified chronic kidney disease; N18.3 Chronic kidney disease, stage 3 (moderate); E78.5 Hyperlipidemia, unspecified; N40.0 Benign prostatic hyperplasia without lower urinary tract symptoms; Z86.73 Personal history of transient ischemic attack (TIA), and cerebral infarction without residual deficits; Z85.828 Personal history of other malignant neoplasm of skin; Z90.49 Acquired absence of other specified parts of digestive tract; Z87.891 Personal history of nicotine dependence
CPT/HCPCS: 36415; 74177; 80053; 81003; 81015; 83690; 85025; 85610; 96361; 96365; 96375; J0744; J1650; J2543; J7050; J7512; J7515; J7517

== ENCOUNTER 2018-05-21 08:31 | Outpatient (CLI) | payer MEDICARE ==
--- NOTE | 2018-05-21 10:43 | MRI ---
FMR of the pelvis with and without contrast Indication: Elevated PSA. TECHNIQUE: Multiplanar multisequence MR images were obtained of the pelvis with and without IV contra st utilizing 20 cc of MultiHance. No comparisons are available. The examination was interpreted on a separate [employer] 3-D workstation for multiparametric evaluation of the pelvis and prostate. FINDINGS: The prostate measures 6.0 x 4.8 x 5.4 cm given estimated total prosthetic volume of 78.44 cc. There is no suspicious area of restricted diffusion seen within the peripheral zone of the prostate g land. No suspicious T2 signal abnormality is seen within the central zone of the prostate gland. Ther e is no abnormal signal seen within the anterior fibromuscular stroma. The visualized seminal vesicle s appear within normal limits. Neurovasculature appears within normal limits. No lymphadenopathy is evident. There are scattered diverticula present. There is osteonecrosis involving both femoral heads without evidence of subchondral collapse. IMPRESSION: 1. PI-RADS Category 2-low (clinically significant cancer is unlikely to be present). 2. There are multiple prominent BPH nodules seen within central gland with enlargement of the gland i tself. There are scattered diverticula involving the colon. There is bilateral femoral head osteonecr osis without evidence of subchondral collapse. Transcribed Date/Time: 05/21/2018 11:08 AM
== END 2018-05-21 08:32 | disposition home or self-care (01) ==
LOC: TBSIIMAG 08:31
PROVIDERS: ATTEND Urology
DX: R97.20 Elevated prostate specific antigen [PSA] (principal); N40.0 Benign prostatic hyperplasia without lower urinary tract symptoms; N40.2 Nodular prostate without lower urinary tract symptoms; K57.30 Diverticulosis of large intestine without perforation or abscess without bleeding; M87.851 Other osteonecrosis, right femur; M87.852 Other osteonecrosis, left femur
CPT/HCPCS: 72197

== ENCOUNTER 2018-08-16 06:26 | Emergency (ER) | payer MEDICARE ==
[2018-08-16 07:01] LABS: #Eosinphils 0.3 thou/uL (0.0-0.7); #Lymphocytes 1.8 thou/uL (1.20-3.40); #Neutrophils 10.7 thou/uL (1.40-6.50); %Basophils 0.2 % (0.0-1.0); %Eosinophils 2.4 % (0.0-10.0); %Lymphocytes 13.2 % (21.0-51.0); %Monocytes 7.1 % (0.0-10.0); %Neutrophils 77.2 % (42.0-75.0); Hemoglobin 12.7 g/dL (14.0-18.0); Mean Corpuscular HGB CONC 32.9 g/dL (32.0-36.0); Mean Corpuscular Hemoglobin 29.6 pg (27.0-31.0); Mean Corpuscular Volume 89.9 fL (78.0-98.0); Mean Platelet Volume 8.7 fL (7.4-10.4); Platelet Count 209 thou/uL (130-400); RBC Distribution Width 14.1 % (11.5-14.5); White Blood Cell (WBC) Count 13.9 thou/uL (4.8-10.8)
[2018-08-16 07:24] LABS: ALT (SGPT) 11 U/L (8-55); AST (SGOT) 13 U/L (5-34); Albumin 4.2 g/dL (3.4-4.8); Alkaline Phosphatase 82 U/L (40-150); Anion Gap 16 mmol/L (10-20); BUN (Urea Nitrogen) 23 mg/dL (8.4-25.7); Bilirubin, Total 1.4 mg/dL (0.2-1.2); Calc. Creatinine Clearance 0 mL/min (70-130); Calcium 10.1 mg/dL (7.8-10.44); Carbon Dioxide 26 mmol/L (23-31); Chloride 101 mmol/L (98-107); Estimated GFR-MDRD 44; Globulin 3.3 g/dL (2.4-3.5); Glucose 109 mg/dL (80-115); Potassium 3.8 mmol/L (3.5-5.1); Protein, Total 7.5 g/dL (5.8-8.1); Sodium 139 mmol/L (136-145)
[2018-08-16] MEDS ORDERED: Ondansetron PF 4 MG/2 ML Vial ONE ×2 (07:40→09:33)
[2018-08-16] MEDS ORDERED: Morphine 4 MG/ML VIAL ONE (07:40)
[2018-08-16] MEDS ORDERED: Morphine 2 MG/ML SYRINGE ONE (07:51)
--- NOTE | 2018-08-16 09:31 | CT ---
ABDOMEN CT WITH CONTRAST PELVIC CT WITH CONTRAST: Date: 08/16/18 HISTORY: Left lower quadrant pain. Nausea. COMPARISON: 05/13/18. FINDINGS: CT ABDOMEN: Stable bullae in the left lower lobe. Gallbladder surgically absent. Portal vein patent. Liver, splee n, pancreas, and adrenal glands have appropriate attenuation and enhancement. No gastrohepatic, retro crural, or periportal lymphadenopathy. Symmetric enhancement of the kidneys. Bilaterally, no obstructive uropathy. Stable hypodense lesion in the right renal cortex measuring 2.0 x 1.9 cm. Additional smaller hypodens ities in the left and right renal cortex are noted. There is a stable hyperdense lesion in the left r enal cortex measuring 0.8 cm. There is a similar hyperdense lesion emanating from the lower pole of t he left kidney measuring 0.7 cm. There is no mesenteric mass, lymphadenopathy, or free air. There is stranding of the left lower quadr ant mesentery with a small amount of adjacent fluid in the left paracolic gutter. Limited evaluation of the alimentary canal by the lack of oral contrast. Gastric mucosa and small bow el loops are unremarkable. Ileocecal junction is normal. There is a normal caliber appendix. Scattere d fecal material in nondistended, nondilated colon. There is evidence of diverticulosis. There is muc osal thickening with pericolonic fat stranding involving the distal descending colon. There is eviden ce for diverticulitis. No evidence of abscess or perforation. Additional diverticula noted in the sig moid colon, along with mild mucosal thickening, without evidence of significant fat stranding. Underl octaviano neoplastic process in the sigmoid colon cannot be excluded. Mucosal thickening may be due to rem ote bouts of diverticulitis as there is evidence of inflammation in this region on the April [address] PELVIS: No mass, lymphadenopathy, free air, or free fluid. Unremarkable urinary bladder. There is mild enlarg ement of the prostate gland. No lytic or blastic lesions in the osseous structures. There are degenerative changes in both hips. IMPRESSION: 1. Diverticulitis involving the distal descending colon. No evidence of abscess or perforation. 2. Bowel wall thickening involving the sigmoid colon, which may be due to remote bouts of diverticul itis. Underlying neoplastic process cannot be excluded. Nonemergent colonoscopy is recommended when a cute inflammation resolves. 3. Complex right renal cyst is redemonstrated. Additional renal lesions as described above. POS: OFF
[2018-08-16] MEDS ORDERED: metroNIDAZOLE 250 MG TAB ONE (09:33)
[2018-08-16] MEDS ORDERED: Ciprofloxacin 500 MG TAB ONE (09:33)
[2018-08-16] MEDS ORDERED: ISOVUE-370 76%-LOCM 1 ML ONE (11:43)
== END 2018-08-16 09:40 | disposition home or self-care (01) ==
LOC: ERS 06:26
DX: K57.32 Diverticulitis of large intestine without perforation or abscess without bleeding (principal); D72.829 Elevated white blood cell count, unspecified; N19 Unspecified kidney failure; I10 Essential (primary) hypertension; I25.10 Atherosclerotic heart disease of native coronary artery without angina pectoris; Z86.73 Personal history of transient ischemic attack (TIA), and cerebral infarction without residual deficits; Z87.891 Personal history of nicotine dependence
CPT/HCPCS: 36415; 74177; 80053; 83605; 84484; 85025; 93005; 96361; 96374; 96375; 96376; J2270; J2405; Q9966

== ENCOUNTER 2018-09-17 17:15 | Emergency (ER) | payer MEDICARE ==
[2018-09-17 17:53] LABS: #Eosinphils 0.2 thou/uL (0.0-0.7); #Lymphocytes 2.6 thou/uL (1.20-3.40); #Monocytes 0.7 thou/uL (0.11-0.59); #Neutrophils 7.3 thou/uL (1.40-6.50); %Basophils 0.2 % (0.0-1.0); %Eosinophils 1.5 % (0.0-10.0); %Lymphocytes 23.7 % (21.0-51.0); %Monocytes 6.7 % (0.0-10.0); %Neutrophils 67.9 % (42.0-75.0); Hemoglobin 12.5 g/dL (14.0-18.0); Mean Corpuscular HGB CONC 32.6 g/dL (32.0-36.0); Mean Corpuscular Volume 88.9 fL (78.0-98.0); Mean Platelet Volume 9.3 fL (7.4-10.4); Platelet Count 167 thou/uL (130-400); RBC Distribution Width 14.4 % (11.5-14.5); White Blood Cell (WBC) Count 10.8 thou/uL (4.8-10.8)
[2018-09-17 17:57] LABS: INR-International Normal Ratio 1.1; Prothrombin Time 14.5 SEC (12.0-14.7)
--- NOTE | 2018-09-17 18:02 | RAD ---
Frontal and lateral imaging of the chest 09/17/2018 COMPARISON: 09/09/2013 HISTORY: Hemoptysis FINDINGS: There is a round pulmonary parenchymal cyst within the left base measuring 4.7 cm in transv erse dimension, unchanged when compared to prior imaging. There is a small fluid level within the inferior aspect of this cyst. Midline sternotomy wires are noted. There is no pneumothorax, pleural f luid, focal consolidation, or alveolar edema. There is a questionable vague nodule within the left upper lobe measuring approximately 1.4 cm. Impression: Cyst within the left lower lobe with a very small fluid level. Fluid level is new and may signify superimposed inflammatory/infectious change or internal debris. Possible pulmonary nodule within the left upper lobe region measuring 1.4 cm. Nonemergent follow-up c hest CT suggested Code lung nodule.
[2018-09-17 18:13] LABS: ALT (SGPT) Less than 7 U/L (8-55); AST (SGOT) 7 U/L (5-34); Alkaline Phosphatase 69 U/L (40-150); Anion Gap 14 mmol/L (10-20); BUN (Urea Nitrogen) 21 mg/dL (8.4-25.7); Bilirubin, Total 0.8 mg/dL (0.2-1.2); Calc. Creatinine Clearance 0 mL/min (70-130); Calcium 9.6 mg/dL (7.8-10.44); Carbon Dioxide 27 mmol/L (23-31); Chloride 102 mmol/L (98-107); Estimated GFR-MDRD 45; Globulin 2.9 g/dL (2.4-3.5); Glucose 130 mg/dL (80-115); Potassium 3.2 mmol/L (3.5-5.1); Protein, Total 6.9 g/dL (5.8-8.1); Sodium 140 mmol/L (136-145)
--- NOTE | 2018-09-17 19:12 | CT ---
CT ANGIOGRAM THORAX WITH IV CONTRAST AND 3D RECONSTRUCTIONS: 09/17/18 HISTORY: Patient complains of coughing and spitting up blood for one week. Hemoptysis. History of heart transp lant. COMPARISON: None available. FINDINGS: No filling defects are seen in the pulmonary arteries to suggest a pulmonary embolus. The thoracic aorta is normal in caliber. Vascular calcifications are seen in the thoracic aorta. The heart is mildly enlarged. No interstitial edema is seen. There is a thin walled cyst measuring 1.1 cm in the right upper lobe. There is a larger thin walled c yst seen in the left lower lobe which was present on a CT abdomen on 08/16/18 and also seen on CT abd omen on 11/07/11. There is minimal decreased density now present in the dependent portion of this cyst ic structure which may represent a very tiny air fluid level. No adjacent parenchymal changes are see n. There are scattered linear bibasilar densities probably related to mild scarring also seen at the jimmy g bases on prior CT scan of the abdomen. There are two 6 mm pulmonary nodules right lung base with scattered less than 5 mm pulmonary nodules within the region of the left upper lobe\lingula as well as left lower lobe. There is slight pleural thickening at the posterior left lung base. There is a nodular pleural based density seen at the left lung base in the superior segment left lower lobe measuring 15 mm x 6 mm. No consolidation or pleural fluid is identified. There is no evidence of lymphadenopathy. Small hiatal hernia is present. Post cholecystectomy changes are noted. Median sternotomy wires are seen. IMPRESSION: 1. No CT evidence of a pulmonary embolus. 2. Mild cardiomegaly. 3. Tiny nodular densities seen at each lung base, largest in the right lower lobe. One of the no dules in the right lower lobe is stable from 2012 and the additional nodule medial right lung base wa s also seen on the prior study in 2012 but measured approximately 4 mm, representing slight interval enlargement. Follow-up CT thorax in 4 to 6 months is recommended to further evaluate these nodular de nsities. 4. Thin walled cystic lesion left lower lobe with tiny air fluid level now seen. POS: [facility]
== END 2018-09-17 20:50 | disposition home or self-care (01) ==
LOC: ERS 17:15
DX: R04.2 Hemoptysis (principal); I10 Essential (primary) hypertension; Z79.899 Other long term (current) drug therapy
CPT/HCPCS: 36415; 71046; 71275; 80053; 85025; 85610

== ENCOUNTER 2021-10-13 08:41 | Inpatient (IN) | payer MEDICARE ==
[2021-10-13 13:00] LABS: #Eosinphils 0.1 thou/uL (0.0-0.7); #Lymphocytes 1.2 thou/uL (1.20-3.40); #Monocytes 0.9 thou/uL (0.11-0.59); #Neutrophils 5.5 thou/uL (1.40-6.50); %Eosinophils 1.5 % (0.0-10.0); %Lymphocytes 14.9 % (21.0-51.0); %Neutrophils 71.6 % (42.0-75.0); ALT (SGPT) 11 U/L (8-55); AST (SGOT) 15 U/L (5-34); Albumin 3.7 g/dL (3.4-4.8); Alkaline Phosphatase 57 U/L (40-110); Anion Gap 16 mmol/L (10-20); BUN (Urea Nitrogen) 27 mg/dL (8.4-25.7); Bilirubin, Total 0.7 mg/dL (0.2-1.2); Calc. Creatinine Clearance 0 mL/min (70-130); Calcium 8.7 mg/dL (7.8-10.44); Carbon Dioxide 21 mmol/L (23-31); Chloride 106 mmol/L (98-107); Estimated GFR 43; Globulin 2.8 g/dL (2.4-3.5); Glucose 101 mg/dL (80-115); Hemoglobin 11.5 g/dL (14.0-18.0); Large Platelets SLIGHT; MDiff Complete? YES; Magnesium 1.7 mg/dL (1.6-2.6); Mean Corpuscular HGB CONC 33.4 g/dL (32.0-36.0); Mean Corpuscular Hemoglobin 30.5 pg (27.0-31.0); Mean Corpuscular Volume 91.4 fL (78.0-98.0); Mean Platelet Volume 9.4 fL (7.4-10.4); Platelet Count 118 thou/uL (130-400); Platelet Morphology Comment Appears Decreased; Polychromasia SLIGHT = 2-3 cells (100X) (0-2/hpf); Potassium 3.8 mmol/L (3.5-5.1); Protein, Total 6.5 g/dL (5.8-8.1); RBC Distribution Width 14.1 % (11.5-14.5); Red Blood Cell (RBC) Count 3.76 mill/uL (4.70-6.10); Sodium 139 mmol/L (136-145); White Blood Cell (WBC) Count 7.7 thou/uL (4.8-10.8)
[2021-10-13 13:03] LABS: CKMB 0.7 ng/mL (0-6.6); Troponin I 0.017 ng/mL (< 0.028)
[2021-10-13] MEDS ORDERED: cefTRIAXone\\ROCEPHIN 1 GM VIAL ONE (14:03)
[2021-10-13] MEDS ORDERED: Azithromycin 500 MG VIAL ONE (14:03)
[2021-10-13] MEDS ORDERED: Acetaminophen 500 MG TAB ONE (14:32)
[2021-10-13 14:44] LABS: SARS-CoV-2 NAA Rapid Test DETECTED (NotDetected)
[2021-10-13] MEDS ORDERED: Acetaminophen 325 MG TAB PO PRN (15:18)
[2021-10-13] MEDS ORDERED: Ondansetron ODT 4 MG TAB PO PRN (15:18)
[2021-10-13] MEDS ORDERED: Iopamidol-370 76% 500 ML 1 ML ONE (15:29)
[2021-10-13] MEDS ORDERED: Dexamethasone 6 MG in Sodium Chloride 0.9% 50 ML IVPB SCH (15:45)
[2021-10-13 17:03] LABS: Troponin I 0.033 ng/mL (< 0.028)
[2021-10-13 17:17] LABS: Free T4 (Free Thyroxine) 0.93 ng/dL (0.70-1.48)
[2021-10-13 17:48] VITALS: BMI 31.3
[2021-10-13] MEDS ORDERED: Dexamethasone 4 mg/ml Vial SLOW IVP SCH (19:15)
[2021-10-13 20:45] LABS: Troponin I 0.023 ng/mL (< 0.028)
[2021-10-13] MEDS ORDERED: Non-Formulary Item 1 EACH (Ramipril [Ramipril] 10 MG Capsule) PO SCH (21:00)
[2021-10-13] MEDS: cycloSPORINE, Modified 25 MG CAP PO SCH (21:15)
[2021-10-13] MEDS: Zinc Sulfate 220 MG CAP PO SCH (21:16)
[2021-10-13] MEDS: Furosemide 20 MG TAB PO SCH (21:17)
[2021-10-13] MEDS: Mycophenolate 250 MG CAP PO SCH (21:17)
[2021-10-13] MEDS: Potassium Chloride 20 MEQ TAB PO SCH (21:17)
[2021-10-13] MEDS: Atenolol 50 MG TAB PO SCH (21:17)
[2021-10-13] MEDS: Enoxaparin Sodium 100 MG/ML SYRINGE SC SCH (21:19)
[2021-10-14 05:04] LABS: ALT (SGPT) 13 U/L (8-55); AST (SGOT) 21 U/L (5-34); Alkaline Phosphatase 61 U/L (40-110); Anion Gap 17 mmol/L (10-20); BUN (Urea Nitrogen) 21 mg/dL (8.4-25.7); Bilirubin, Total 0.6 mg/dL (0.2-1.2); Calc. Creatinine Clearance 64 mL/min (70-130); Carbon Dioxide 20 mmol/L (23-31); Chloride 105 mmol/L (98-107); Estimated GFR 47; Globulin 3.1 g/dL (2.4-3.5); Glucose 137 mg/dL (80-115); Potassium 3.9 mmol/L (3.5-5.1); Protein, Total 7.1 g/dL (5.8-8.1); Sodium 138 mmol/L (136-145)
[2021-10-14 05:08] LABS: #Lymphocytes 1.4 thou/uL (1.20-3.40); #Monocytes 0.5 thou/uL (0.11-0.59); #Neutrophils 6.4 thou/uL (1.40-6.50); %Basophils 0.1 % (0.0-1.0); %Eosinophils 0.2 % (0.0-10.0); %Lymphocytes 16.9 % (21.0-51.0); %Monocytes 5.8 % (0.0-10.0); Hemoglobin 12.3 g/dL (14.0-18.0); Mean Corpuscular HGB CONC 33.7 g/dL (32.0-36.0); Mean Corpuscular Hemoglobin 31.1 pg (27.0-31.0); Mean Corpuscular Volume 92.3 fL (78.0-98.0); Mean Platelet Volume 9.7 fL (7.4-10.4); Platelet Count 116 thou/uL (130-400); RBC Distribution Width 14.1 % (11.5-14.5); Red Blood Cell (RBC) Count 3.96 mill/uL (4.70-6.10); White Blood Cell (WBC) Count 8.2 thou/uL (4.8-10.8)
[2021-10-14] MEDS: Amlodipine 5 MG TAB PO SCH (08:50)
[2021-10-14] MEDS: Allopurinol 100 MG TAB PO SCH (08:51)
[2021-10-14] MEDS: Aspirin 81 mg Enteric Coated Tablet PO SCH (08:51)
[2021-10-14] MEDS: Atenolol 50 MG TAB PO SCH ×2 (08:51→20:49)
[2021-10-14] MEDS: Enoxaparin Sodium 100 MG/ML SYRINGE SC SCH ×2 (08:51→20:51)
[2021-10-14] MEDS: Potassium Chloride 20 MEQ TAB PO SCH ×2 (08:51→20:49)
[2021-10-14] MEDS: Mycophenolate 250 MG CAP PO SCH ×2 (08:51→20:50)
[2021-10-14] MEDS: Rosuvastatin 10 MG TAB PO SCH (08:52)
[2021-10-14] MEDS: Zinc Sulfate 220 MG CAP PO SCH ×2 (08:52→20:50)
[2021-10-14] MEDS: Furosemide 20 MG TAB PO SCH ×2 (08:52→20:49)
[2021-10-14] MEDS: cycloSPORINE, Modified 25 MG CAP PO SCH ×2 (08:53→20:51)
[2021-10-14] MEDS: Dexamethasone 4 mg/ml Vial SLOW IVP SCH (08:53)
[2021-10-14] MEDS ORDERED: Enoxaparin Sodium 40 MG/0.4 ML SYRINGE SC SCH (09:00)
[2021-10-14] MEDS ORDERED: Dexamethasone 6 MG in Sodium Chloride 0.9% 50 ML IVPB SCH (09:00)
[2021-10-15] MEDS: cycloSPORINE, Modified 25 MG CAP PO SCH (09:36)
[2021-10-15] MEDS: Enoxaparin Sodium 100 MG/ML SYRINGE SC SCH ×2 (09:36→21:42)
[2021-10-15] MEDS: Furosemide 20 MG TAB PO SCH ×2 (09:37→21:40)
[2021-10-15] MEDS: Rosuvastatin 10 MG TAB PO SCH (09:37)
[2021-10-15] MEDS: Potassium Chloride 20 MEQ TAB PO SCH ×2 (09:38→21:41)
[2021-10-15] MEDS: Dexamethasone 4 mg/ml Vial SLOW IVP SCH (09:38)
[2021-10-15] MEDS: Atenolol 50 MG TAB PO SCH ×2 (09:38→21:40)
[2021-10-15] MEDS: Mycophenolate 250 MG CAP PO SCH ×2 (09:38→21:41)
[2021-10-15] MEDS: Aspirin 81 mg Enteric Coated Tablet PO SCH (09:38)
[2021-10-15] MEDS: Amlodipine 5 MG TAB PO SCH (09:39)
[2021-10-15] MEDS: Allopurinol 100 MG TAB PO SCH (09:39)
[2021-10-15] MEDS: Zinc Sulfate 220 MG CAP PO SCH (10:42)
[2021-10-15] MEDS: ZINC PO SCH ×2 (11:17→21:42)
[2021-10-15] MEDS: VIT D3 PO SCH ×2 (11:17→21:42)
[2021-10-15] MEDS: [UNRECOGNIZED DRUG - OTHER] PO SCH ×2 (11:17→21:42)
[2021-10-15] MEDS: MAG PO SCH ×2 (11:17→21:42)
[2021-10-15 14:12] LABS: #Basophils 0.1 thou/uL (0.0-0.2); #Lymphocytes 1.7 thou/uL (1.20-3.40); #Monocytes 0.7 thou/uL (0.11-0.59); #Neutrophils 8.4 thou/uL (1.40-6.50); %Basophils 0.9 % (0.0-1.0); %Eosinophils 0.1 % (0.0-10.0); %Lymphocytes 15.3 % (21.0-51.0); %Monocytes 6.2 % (0.0-10.0); %Neutrophils 77.5 % (42.0-75.0); Hemoglobin 13.8 g/dL (14.0-18.0); Mean Corpuscular Hemoglobin 30.3 pg (27.0-31.0); Mean Corpuscular Volume 91.8 fL (78.0-98.0); Mean Platelet Volume 10.4 fL (7.4-10.4); Platelet Count 149 thou/uL (130-400); RBC Distribution Width 14.4 % (11.5-14.5); Red Blood Cell (RBC) Count 4.56 mill/uL (4.70-6.10); White Blood Cell (WBC) Count 10.9 thou/uL (4.8-10.8)
[2021-10-15 14:35] LABS: ALT (SGPT) 16 U/L (8-55); AST (SGOT) 32 U/L (5-34); Albumin 4.3 g/dL (3.4-4.8); Alkaline Phosphatase 58 U/L (40-110); Anion Gap 18 mmol/L (10-20); BUN (Urea Nitrogen) 32 mg/dL (8.4-25.7); Bilirubin, Total 0.6 mg/dL (0.2-1.2); Calc. Creatinine Clearance 55 mL/min (70-130); Calcium 9.5 mg/dL (7.8-10.44); Carbon Dioxide 20 mmol/L (23-31); Chloride 106 mmol/L (98-107); Estimated GFR 42; Globulin 3.7 g/dL (2.4-3.5); Glucose 131 mg/dL (80-115); Potassium 4.2 mmol/L (3.5-5.1); Sodium 140 mmol/L (136-145)
[2021-10-16] MEDS: cycloSPORINE, Modified 25 MG CAP PO SCH ×3 (00:45→22:02)
[2021-10-16 04:30] LABS: #Monocytes 0.8 thou/uL (0.11-0.59); #Neutrophils 7.8 thou/uL (1.40-6.50); %Basophils 0.1 % (0.0-1.0); %Eosinophils 0.1 % (0.0-10.0); %Lymphocytes 18.8 % (21.0-51.0); %Monocytes 7.4 % (0.0-10.0); %Neutrophils 73.6 % (42.0-75.0); Hemoglobin 12.8 g/dL (14.0-18.0); Mean Corpuscular HGB CONC 33.2 g/dL (32.0-36.0); Mean Corpuscular Hemoglobin 30.3 pg (27.0-31.0); Mean Corpuscular Volume 91.5 fL (78.0-98.0); Mean Platelet Volume 10.3 fL (7.4-10.4); Platelet Count 124 thou/uL (130-400); RBC Distribution Width 14.2 % (11.5-14.5); Red Blood Cell (RBC) Count 4.22 mill/uL (4.70-6.10); White Blood Cell (WBC) Count 10.6 thou/uL (4.8-10.8)
[2021-10-16 04:54] LABS: ALT (SGPT) 13 U/L (8-55); AST (SGOT) 25 U/L (5-34); Albumin 3.8 g/dL (3.4-4.8); Alkaline Phosphatase 52 U/L (40-110); Anion Gap 17 mmol/L (10-20); BUN (Urea Nitrogen) 32 mg/dL (8.4-25.7); Bilirubin, Total 0.4 mg/dL (0.2-1.2); Calc. Creatinine Clearance 65 mL/min (70-130); Calcium 9.2 mg/dL (7.8-10.44); Carbon Dioxide 22 mmol/L (23-31); Chloride 106 mmol/L (98-107); Estimated GFR 52; Globulin 3.2 g/dL (2.4-3.5); Glucose 129 mg/dL (80-115); Potassium 3.8 mmol/L (3.5-5.1); Sodium 141 mmol/L (136-145)
[2021-10-16] MEDS: Potassium Chloride 20 MEQ TAB PO SCH ×2 (09:30→21:16)
[2021-10-16] MEDS: Rosuvastatin 10 MG TAB PO SCH (09:30)
[2021-10-16] MEDS: Aspirin 81 mg Enteric Coated Tablet PO SCH (09:30)
[2021-10-16] MEDS: Enoxaparin Sodium 100 MG/ML SYRINGE SC SCH (09:30)
[2021-10-16] MEDS: Furosemide 20 MG TAB PO SCH ×2 (09:30→21:16)
[2021-10-16] MEDS: Amlodipine 5 MG TAB PO SCH (09:30)
[2021-10-16] MEDS: Dexamethasone 4 mg/ml Vial SLOW IVP SCH (09:31)
[2021-10-16] MEDS: Allopurinol 100 MG TAB PO SCH (09:31)
[2021-10-16] MEDS: Mycophenolate 250 MG CAP PO SCH ×2 (09:31→21:16)
[2021-10-16] MEDS: Atenolol 50 MG TAB PO SCH ×2 (09:38→21:16)
[2021-10-16] MEDS: ZINC PO SCH ×2 (09:45→21:17)
[2021-10-16] MEDS: [UNRECOGNIZED DRUG - OTHER] PO SCH ×2 (09:45→21:17)
[2021-10-16] MEDS: VIT D3 PO SCH ×2 (09:45→21:17)
[2021-10-16] MEDS: MAG PO SCH ×2 (09:45→21:17)
[2021-10-16] MEDS: Apixaban 5 MG TAB PO SCH (21:16)
[2021-10-17 04:57] LABS: #Lymphocytes 1.9 thou/uL (1.20-3.40); #Monocytes 0.8 thou/uL (0.11-0.59); #Neutrophils 7.8 thou/uL (1.40-6.50); %Basophils 0.1 % (0.0-1.0); %Eosinophils 0.2 % (0.0-10.0); %Lymphocytes 17.8 % (21.0-51.0); %Monocytes 7.7 % (0.0-10.0); %Neutrophils 74.3 % (42.0-75.0); Hemoglobin 12.5 g/dL (14.0-18.0); Mean Corpuscular HGB CONC 33.9 g/dL (32.0-36.0); Mean Corpuscular Hemoglobin 30.9 pg (27.0-31.0); Mean Platelet Volume 10.4 fL (7.4-10.4); Platelet Count 122 thou/uL (130-400); RBC Distribution Width 13.9 % (11.5-14.5); Red Blood Cell (RBC) Count 4.03 mill/uL (4.70-6.10); White Blood Cell (WBC) Count 10.5 thou/uL (4.8-10.8)
[2021-10-17 05:22] LABS: ALT (SGPT) 15 U/L (8-55); AST (SGOT) 21 U/L (5-34); Albumin 3.7 g/dL (3.4-4.8); Alkaline Phosphatase 49 U/L (40-110); Anion Gap 17 mmol/L (10-20); BUN (Urea Nitrogen) 32 mg/dL (8.4-25.7); Bilirubin, Total 0.5 mg/dL (0.2-1.2); Calc. Creatinine Clearance 61 mL/min (70-130); Calcium 8.8 mg/dL (7.8-10.44); Carbon Dioxide 22 mmol/L (23-31); Chloride 103 mmol/L (98-107); Estimated GFR 47; Globulin 3.1 g/dL (2.4-3.5); Glucose 134 mg/dL (80-115); Potassium 3.6 mmol/L (3.5-5.1); Protein, Total 6.8 g/dL (5.8-8.1); Sodium 138 mmol/L (136-145)
[2021-10-17 07:59] VITALS: BP 124/90; TEMP 98.2
[2021-10-17] MEDS: Aspirin 81 mg Enteric Coated Tablet PO SCH (09:23)
[2021-10-17] MEDS: Allopurinol 100 MG TAB PO SCH (09:23)
[2021-10-17] MEDS: Rosuvastatin 10 MG TAB PO SCH (09:23)
[2021-10-17] MEDS: Potassium Chloride 20 MEQ TAB PO SCH (09:23)
[2021-10-17] MEDS: Apixaban 5 MG TAB PO SCH (09:23)
[2021-10-17] MEDS: Furosemide 20 MG TAB PO SCH (09:23)
[2021-10-17] MEDS: Dexamethasone 4 mg/ml Vial SLOW IVP SCH (09:24)
[2021-10-17] MEDS: Atenolol 50 MG TAB PO SCH (09:24)
[2021-10-17] MEDS: cycloSPORINE, Modified 25 MG CAP PO SCH (09:25)
[2021-10-17] MEDS: Amlodipine 5 MG TAB PO SCH (09:25)
[2021-10-17] MEDS: VIT D3 PO SCH (09:26)
[2021-10-17] MEDS: Mycophenolate 250 MG CAP PO SCH (09:26)
[2021-10-17] MEDS: ZINC PO SCH (09:26)
[2021-10-17] MEDS: [UNRECOGNIZED DRUG - OTHER] PO SCH (09:26)
[2021-10-17] MEDS: MAG PO SCH (09:26)
== END 2021-10-17 10:46 | disposition home or self-care (01) | DRG 177 ==
LOC: ERS 08:41 → 2NO 14:45
PROVIDERS: ADMIT Family Medicine; ATTEND Family Medicine
PROC: 8E0ZXY6 Isolation (ICD-10-PCS; principal; 2021-10-13)
DX: U07.1 COVID-19 (principal); J96.01 Acute respiratory failure with hypoxia; I69.954 Hemiplegia and hemiparesis following unspecified cerebrovascular disease affecting left non-dominant side; Z94.1 Heart transplant status; I50.22 Chronic systolic (congestive) heart failure; I48.92 Unspecified atrial flutter; D84.821 Immunodeficiency due to drugs; E78.5 Hyperlipidemia, unspecified; I48.91 Unspecified atrial fibrillation; I25.10 Atherosclerotic heart disease of native coronary artery without angina pectoris; M10.9 Gout, unspecified; I11.0 Hypertensive heart disease with heart failure; T37.1X5A Adverse effect of antimycobacterial drugs, initial encounter; C44.91 Basal cell carcinoma of skin, unspecified; E05.80 Other thyrotoxicosis without thyrotoxic crisis or storm; Z90.49 Acquired absence of other specified parts of digestive tract; Z87.891 Personal history of nicotine dependence; Z79.52 Long term (current) use of systemic steroids; Z79.51 Long term (current) use of inhaled steroids; Z79.899 Other long term (current) drug therapy
CPT/HCPCS: 36415; 71045; 71275; 80053; 80158; 82553; 83735; 83880; 84145; 84439; 84443; 84481; 84484; 85025; 85520; 87040; 93005; 93306; 96372; 96374; J0456; J0696; J1100; J1650; J7515; J7517; Q9967; U0002